=== PATIENT | male | born 2005 | race Caucasian/White ===

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

== ENCOUNTER 2023-03-26 16:05 | Emergency (ER) | payer BC ==
[~2023-03-26] VITALS: Ht 185.4 cm; Wt 85.0 kg
[~2023-03-26 16:05] MED LIST: MONT-47 PO; [UNRECOGNIZED DRUG - OTHER] PO
[2023-03-26 16:09] VITALS: BP 157/89; PULSE 79; RESP 18; TEMP 98.3; O2SAT 98
[2023-03-26] MEDS ORDERED: TETanus/Pertussis (Acell)/Diphther VAC/PF (Tdap-Adult) 0.5ml syringe IMVAC ONE (16:40)
[2023-03-26] MEDS ORDERED: CEPH-585 PO (17:07)
== END 2023-03-26 17:27 | disposition home or self-care (01) ==
LOC: ER 16:06
DX: S61.432A Puncture wound without foreign body of left hand, initial encounter (principal); Z88.1 Allergy status to other antibiotic agents; Z79.2 Long term (current) use of antibiotics; Z79.899 Other long term (current) drug therapy; W22.8XXA Striking against or struck by other objects, initial encounter; Y93.89 Activity, other specified; Y92.89 Other specified places as the place of occurrence of the external cause; Y99.8 Other external cause status
CPT/HCPCS: 90471; 90715; 99283

== ENCOUNTER 2024-06-15 21:11 | Emergency (ER) | payer BC ==
[~2024-06-15] VITALS: Ht 180.3 cm; Wt 80.4 kg
[2024-06-15 21:14] VITALS: BP 141/76; PULSE 81; RESP 17; TEMP 98.6; O2SAT 98
== END 2024-06-15 22:23 | disposition home or self-care (01) ==
LOC: ER 21:11
DX: S93.401A Sprain of unspecified ligament of right ankle, initial encounter (principal); Z88.0 Allergy status to penicillin; Z79.899 Other long term (current) drug therapy; X58.XXXA Exposure to other specified factors, initial encounter; Y93.61 Activity, american tackle football; Y92.89 Other specified places as the place of occurrence of the external cause; Y99.8 Other external cause status
CPT/HCPCS: 29540; 73590; 73610; 73630; 99284; L1930